=== PATIENT | female | born 1960 ===

== ENCOUNTER 2017-01-11 10:38 | Inpatient (IN) | payer MEDICAID, SELFPAY ==
[2017-01-11] MEDS ORDERED: Sodium Chloride 0.9% 1,000 ML IV STA (11:30)
--- NOTE | 2017-01-11 11:45 | ED PDOC ---
HPI: Abdomen Time Seen by Provider: 01/11/17 10:53 Chief Complaint (Nursing): Abdominal Pain Chief Complaint (Provider): Suprapubic pain x 1 day, hot urination x 3 days History Per: Patient, Family (Daughter ) History/Exam Limitations: no limitations Onset/Duration Of Symptoms: Days Outside of [place] travel?: No Current Symptoms Are (Timing): Still Present Severity: Moderate Pain Scale Rating Of: 7 Location Of Pain/Discomfort: Suprapubic Quality Of Discomfort: Cramping Associated Symptoms: Nausea. denies: Fever, Chills, Vomiting Additional Complaint(s): Pt states she has been having hot urination and urinary frequency for 3 days. Pt states last night she has some nausea with suprapubic pain. Pt states she did not take anything for the pain and tolerated toast and coffee today. Pt states she has history of diverticulitis but the pain was on the left side. No fever/chills Past Medical History Reviewed: Historical Data, Nursing Documentation, Vital Signs Vital Signs: Last Vital Signs Temp 98.1 F 01/11/17 19:53 Pulse 79 01/11/17 20:13 Resp 16 01/11/17 19:53 BP 163/74 H 01/11/17 20:13 Pulse Ox 100 01/11/17 19:53 - Medical History PMH: Diabetes, Diverticulitis, HTN, Hyperlipidemia, Hypothyroidism Denies: Chronic Kidney Disease - Surgical History Surgical History: (x 3) - Family History Family History: States: No Known Family Hx - Living Arrangements Living Arrangements: With Family - Social History Current smoker - smoking cessation education provided: No - Home Medications Home Medications: Ambulatory Orders Medication Instructions Recorded Atorvastatin [Lipitor] 40 mg PO HS 11/16/16 Levothyroxine [Synthroid] 1 tab PO DAILY 11/16/16 Lisinopril [Zestril] 20 mg PO DAILY 11/16/16 Metoprolol Tartrate [Lopressor] 100 mg PO BID 11/16/16 metFORMIN [glucOPHAGE] 500 mg PO BID 11/16/16 - Allergies Allergies/Adverse Reactions: Allergies Allergy/AdvReac Type Severity Reaction Status Date / Time aspirin Allergy RASH Verified 01/11/17 10:56 Review of Systems ROS Statement: Except As Marked, All Systems Reviewed And Found Negative Cardiovascular: Negative for: Chest Pain Respiratory: Negative for: Cough, Shortness of Breath Gastrointestinal: Positive for: Nausea, Abdominal Pain Genitourinary Female: Positive for: Dysuria, Frequency Physical Exam - Reviewed Nursing Documentation Reviewed: Yes Vital Signs Reviewed: Yes - Physical Exam Appears: Positive for: Well, Non-toxic, No Acute Distress Head Exam: Positive for: ATRAUMATIC, NORMAL INSPECTION, NORMOCEPHALIC Skin: Positive for: Normal Color, Warm, DRY Eye Exam: Positive for: Normal appearance ENT: Positive for: Normal ENT Inspection Neck: Positive for: Normal, Painless ROM Cardiovascular/Chest: Positive for: Regular Rate, Rhythm Respiratory: Positive for: Normal Breath Sounds. Negative for: Accessory Muscle Use, Respiratory Distress Gastrointestinal/Abdominal: Positive for: Bowel Sounds, Soft, Tenderness ( Suprapubic). Negative for: Normal Exam, Distended, Guarding, Rebound Back: Positive for: Normal Inspection Extremity: Positive for: Normal ROM Neurologic/Psych: Positive for: Alert, Oriented - Laboratory Results Result Diagrams: 01/11/17 11:40 01/11/17 11:40 - ECG O2 Sat by Pulse Oximetry: 98 Pulse Ox Interpretation: Normal Medical Decision Making Medical Decision Making: Discussed with Family residents for admisison. Discussed with Dr. Jovon Hillman. Disposition - Clinical Impression Clinical Impression: Diverticulitis large intestine w/o perforation or abscess w/o bleeding - Patient ED Disposition Is Patient to be Admitted: Yes - Disposition Disposition Time: 19:20 Condition: STABLE - Pt Status Changed To: Hospital Disposition Of: Inpatient - Admit Certification Admit to Inpatient:: After my assessment, the patient will require hospitalization for at least two midnights. This is because of the severity of symptoms shown, intensity of services needed, and/or the medical risk in this patient being treated as an outpatient. - POA Present On Arrival: None
[2017-01-11 11:53] LABS: BASO # 0.1 K/uL (0.0-0.2); BASO % 1.1 % (0.0-2.0); EOS # 0.2 K/uL (0.0-0.7); EOS % 1.8 % (0.0-4.0); HEMATOCRIT 39.9 % (34.0-47.0); LYMPH # 2.3 K/uL (1.0-4.3); LYMPH % 23.3 % (20.0-40.0); MEAN CELL VOLUME 80.3 fl (81.0-99.0); MEAN CORPUSCULAR HEMOGLOBIN 27.3 pg (27.0-31.0); MEAN PLATELET VOLUME 9.5 fl (7.2-11.7); MONO # 0.8 K/uL (0.0-0.8); MONO % 8.3 % (0.0-10.0); NEUT # 6.3 K/uL (1.8-7.0); NEUT % 65.5 % (50.0-75.0); RED CELL DISTRIBUTION WIDTH 14.7 % (11.5-14.5); WHITE BLOOD COUNT 9.7 K/uL (4.8-10.8)
[2017-01-11 11:55] LABS: URINE BILIRUBIN NEGATIVE (NEGATIVE); URINE BLOOD SMALL (NEGATIVE); URINE COLOR STRAW (YELLOW); URINE GLUCOSE (UA) NEG (Normal); URINE KETONE NEGATIVE (NEGATIVE); URINE LEUKOCYTE ESTERASE NEG Leu/uL (Negative); URINE PROTEIN NEGATIVE (NEGATIVE); URINE UROBILINOGEN 0.2-1.0 mg/dL (0.2-1.0); WBC URINE < 1 /hpf (0-5)
[2017-01-11 12:02] LABS: ALB/GLOB RATIO 1.1 (1.0-2.1); ALKALINE PHOSPHATASE 104 U/L (38-126); ALT/SGPT 36 U/L (9-52); AST/SGOT 22 U/L (14-36); BILIRUBIN,TOTAL 1.2 mg/dl (0.2-1.3); BLOOD UREA NITROGEN 10 mg/dl (7-17); CALCIUM 9.5 mg/dL (8.4-10.2); CARBON DIOXIDE 24 mmol/L (22-30); CHLORIDE 104 mmol/L (98-107); GFR AFRICAN-AMERICAN > 60; GLUCOSE,RANDOM 169 mg/dL (65-105); POTASSIUM 3.8 MMOL/L (3.6-5.0); SODIUM 143 mmol/l (132-148); TOTAL PROTEIN 7.9 G/DL (6.3-8.2)
[2017-01-11] MEDS ORDERED: Iohexol 300 100 ML IJ ONE (13:56)
[2017-01-11] MEDS ORDERED: Sodium Chloride 0.9% 50 ML IV ONE (13:56)
--- NOTE | 2017-01-11 15:04 | CT ---
PROCEDURE: CT Abdomen and Pelvis with contrast HISTORY: abdominal pain, nausea, hx diverticulitis COMPARISON: None. TECHNIQUE: Helical CT scan of the abdomen and pelvis was performed after intravenous administration of contrast. Oral contrast was not administered. Coronal and sagittal reformatted images were obtained. Contrast dose: 95 mL Omnipaque 300 Radiation dose: Total exam DLP = 1045.87 mGy-cm. This CT exam was performed using one or more of the following dose reduction techniques: Automated exposure control, adjustment of the mA and/or kV according to patient size, and/or use of iterative reconstruction technique. FINDINGS: LOWER THORAX: There is dependent atelectasis in both lower lobes. LIVER: The liver is normal in size and there is homogeneous enhancement without focal lesion. No gross lesion or ductal dilatation. GALLBLADDER AND BILE DUCTS: There are no calcified gallstones. PANCREAS: The pancreas is normal in size without focal mass. No gross lesion or ductal dilatation. SPLEEN: The spleen is normal in size and there is homogeneous enhancement. ADRENALS: No discrete nodule. KIDNEYS AND URETERS: Both kidneys are normal in size and there is homogeneous enhancement without hydronephrosis or focal mass. VASCULATURE: No evidence of aortic aneurysm. BOWEL: The small bowel loops are normal in caliber. Again seen is sigmoid diverticulosis. There is moderate circumferential mural thickening in the sigmoid colon and pericolonic inflammatory changes. There is a 3.3 x 3.3 x 4.5 cm collection in the left hemipelvis lateral to the sigmoid colon and in the expected location of the left adnexa tracking anterior to the left abdominal wall with thickening and edema in the left lower abdominal wall. APPENDIX: Normal appendix. PERITONEUM: No free fluid. No free air. LYMPH NODES: There is reactive enlargement of retroperitoneal lymph nodes. BLADDER: The urinary bladder is over distended and normal in appearance. REPRODUCTIVE: The uterus is not visualized and may be surgically absent. BONES: No acute fracture. There is multilevel degenerative disc disease in the lower thoracic spine. OTHER FINDINGS: None. IMPRESSION: Findings are consistent with acute sigmoid diverticulitis. Also suspected is reactive inflammation/ abscess in the left adnexa in the expected location of the left ovary measuring 3.3 x 3.3 x 4.5 cm tracking anteriorly to the left abdominal wall. Additional comments as described above.
[2017-01-11] MEDS ORDERED: metroNIDAZOLE 500mg/100ml NS 100 ML IVPB ONE ×2 (15:36→15:41)
[2017-01-11] MEDS ORDERED: Ciprofloxacin IV 400 MG in Sodium Chloride 0.9% 250 ML IV STA (15:36)
[2017-01-11] MEDS ORDERED: Ciprofloxacin 400mg/200ml D5W 200 ML IVPB ONE (15:41)
[2017-01-11] MEDS ORDERED: Ciprofloxacin 400mg/200ml D5W 200 ML IVPB STA (15:49)
--- NOTE | 2017-01-11 16:47 | US ---
HISTORY: Left fluid collection. COMPARISON: None available. TECHNIQUE: Transvaginal pelvic ultrasound was performed. FINDINGS: UTERUS: Status post hysterectomy. RIGHT OVARY: Not visualized. LEFT OVARY: Not visualized. FREE FLUID: No significant free fluid noted. OTHER FINDINGS: Peristalsing bowel loops are visualized. IMPRESSION: Status post hysterectomy, no pelvic mass. Both ovaries are not visualized. No adnexal mass.
[2017-01-11] MEDS ORDERED: Dextrose 5%/0.45% NS 1,000 ML IV SCH (19:00)
[2017-01-11] MEDS ORDERED: metroNIDAZOLE 500mg/100ml NS 100 ML IVPB SCH (19:15)
--- NOTE | 2017-01-11 19:31 | CP.PCM.HP ---
History of Present Illness - History of Present Illness History of Present Illness: CC: dysuria and lower abdominal pain 56 yo F with PMH of HTN, DM2, Hyperlipidemia, Hypothyroidism s/p Thyroidectomy (5 years ago as per pt) presents with worsening intermittent lower abdominal pain localizing to the LLQ, dysuria and chills x 3 days. Pain is 8/10 intensity , diffuse, intermittent, no radiation to flank or upper abdomen, associated w/ nausea but no vomiting. Able to tolerate toast and coffee this AM, able to pass flatus w/o difficulty, last BM this AM, soft, brown in color, no hematochezia reported. Denies CASTRO, fevers, chest pain, SOB, hematemesis, hematochezia, parasthesias, focal weakness. Denies FH of colon CA, states never having a colonoscopy done. ER course: VS stable, afebrile, BP mildly elevated, cbc no leukocytosis, cmp, UA , CT abdo w/contrast: acute sigmoid diverticulitis, TVUS: no adenexal abscess, IV cipro x 1, IV flagyll x 1, morphine PMD: Jj Messina MD Allergies: ASA Meds: Metoprolol, Levothyroxine, Metformin, lisinopril, lipitor PMHx: HTN, DM, HLD, Hypothyroidism, Diabetes SHx: 3 C-sections, Thyroidectomy, Umbilical Hernia, Hysterectomy SocialHx: denies smoking, alcohol, drugs. Present on Admission - Present on Admission Any Indicators Present on Admission: No Review of Systems - Review of Systems Review of Systems: see hpi Past Patient History - Past Medical History & Family History Past Medical History?: Yes - Past Social History Smoking Status: Never Smoked - CARDIAC Hx Hypertension: Yes - PULMONARY Hx Respiratory Disorders: No - NEUROLOGICAL Hx Neurological Disorder: No - HEENT Hx HEENT Problems: No - RENAL Hx Chronic Kidney Disease: No - ENDOCRINE/METABOLIC Hx Hypothyroidism: Yes - INTEGUMENTARY Hx Dermatological Problems: No - MUSCULOSKELETAL/RHEUMATOLOGICAL Hx Musculoskeletal Disorders: No - GASTROINTESTINAL Hx Diverticulitis: Yes - GENITOURINARY/GYNECOLOGICAL Hx Genitourinary Disorders: No - PSYCHIATRIC Hx Psychophysiologic Disorder: No Hx Substance Use: No - SURGICAL HISTORY Hx Surgeries: No - ANESTHESIA Hx Anesthesia: No Meds Allergies/Adverse Reactions: Allergies Allergy/AdvReac Type Severity Reaction Status Date / Time aspirin Allergy RASH Verified 01/11/17 10:56 Physical Exam - Constitutional Appears: Non-toxic, No Acute Distress - Head Exam Head Exam: ATRAUMATIC - Eye Exam Eye Exam: EOMI Pupil Exam: PERRL - ENT Exam ENT Exam: Mucous Membranes Moist - Neck Exam Neck exam: Positive for: Full Rom. Negative for: Lymphadenopathy, Tenderness - Respiratory Exam Respiratory Exam: Clear to Auscultation Bilateral. absent: Accessory Muscle Use , Rhonchi, Wheezes, Respiratory Distress - Cardiovascular Exam Cardiovascular Exam: +S1, +S2 - GI/Abdominal Exam GI & Abdominal Exam: Distended, Normal Bowel Sounds, Soft, Tenderness Additional comments: mildly tenender RLQ, moderate tenderness to LLQ, some voluntary guarding, + BS , soft but distended obese abdomen Results - Vital Signs Recent Vital Signs: Last Vital Signs Temp 98.3 F 01/11/17 16:17 Pulse 82 01/11/17 16:17 Resp 19 01/11/17 16:17 BP 150/73 01/11/17 16:17 Pulse Ox 99 01/11/17 16:17 - Labs Result Diagrams: 01/11/17 11:40 01/11/17 11:40 Labs: Laboratory Results - last 24 hr 01/11/17 11:40 WBC 9.7 RBC 4.97 Hgb 13.6 Hct 39.9 MCV 80.3 L MCH 27.3 MCHC 34.0 RDW 14.7 H Plt Count 327 MPV 9.5 Neut % (Auto) 65.5 Lymph % (Auto) 23.3 [place] % (Auto) 8.3 Eos % (Auto) 1.8 Baso % (Auto) 1.1 Neut # 6.3 Lymph # 2.3 [place] # 0.8 Eos # 0.2 Baso # 0.1 Sodium 143 Potassium 3.8 Chloride 104 Carbon Dioxide 24 Anion Gap 19 BUN 10 Creatinine 0.7 Est GFR ( Amer) > 60 Est GFR (Non-Af Amer) > 60 Random Glucose 169 H Calcium 9.5 Total Bilirubin 1.2 AST 22 ALT 36 Alkaline Phosphatase 104 Total Protein 7.9 Albumin 4.1 Globulin 3.8 Albumin/Globulin Ratio 1.1 Urine Color Straw Urine Clarity Clear Urine pH 7.0 Ur Specific [place] < 1.005 Urine Protein Negative Urine Glucose (UA) Neg Urine Ketones Negative Urine Blood Small Urine Nitrate Negative Urine Bilirubin Negative Urine Urobilinogen 0.2-1.0 Ur Leukocyte Esterase Neg Urine Microscopic WBC < 1 Assessment & Plan - Assessment and Plan (Free Text) Plan: 56 yo F with PMH of HTN, DM2, Hyperlipidemia, Hypothyroidism s/p Thyroidectomy (5 years ago as per pt) presents with worsening intermittent lower abdominal pain localizing to the LLQ, dysuria and chills x 3 days Acute Sigmoid Diverticulitis ER course: VS stable, afebrile, BP mildly elevated, cbc no leukocytosis, cmp, UA , IV cipro x 1, IV flagyll x 1, morphine CT abdo w/contrast: acute sigmoid diverticulitis TVUS: no adenexal abscess NPO for now mtx fluids D5W 0.45% NS @130ml/hr IV cipro 400 Q12 IV flagyll 500 Q8 Morphine for pain control Zofran 4 mg IV Q8 PRN Surgery consulted for evaluation of abscess formation HTN controlled c/w metoprolol and lisinopril DM2 controlled metformin held while NPO MDSS accuchecks ACHS Hypothyroidism controlled c/w synthroid HLD controlled c/w lipitor PPx DVT - SCDs and ambulation for now GI - Protonix while NPO
[2017-01-11] MEDS ORDERED: Ciprofloxacin 400mg/200ml D5W 200 ML IVPB SCH (21:00)
[2017-01-11] MEDS: Dextrose 5%/0.45% NS 1,000 ML IV SCH (21:09)
[2017-01-11] MEDS: Insulin Lispro (humaLOG) 100 Units/ml Inj SC SCH (23:09)
[2017-01-12] MEDS: metroNIDAZOLE 500mg/100ml NS 100 ML IVPB SCH ×3 (02:00→17:42)
[2017-01-12] MEDS: Ciprofloxacin 400mg/200ml D5W 200 ML IVPB SCH ×2 (03:36→16:00)
[2017-01-12] MEDS: Dextrose 5%/0.45% NS 1,000 ML IV SCH (04:00)
[2017-01-12 07:30] LABS: BASO % 0.3 % (0.0-2.0); EOS # 0.2 K/uL (0.0-0.7); EOS % 2.5 % (0.0-4.0); HEMATOCRIT 38.1 % (34.0-47.0); LYMPH # 2.1 K/uL (1.0-4.3); LYMPH % 26.1 % (20.0-40.0); MEAN CELL VOLUME 81.5 fl (81.0-99.0); MEAN CORPUSCULAR HEMOGLOBIN 27.2 pg (27.0-31.0); MEAN CORPUSCULAR HGB CONC 33.4 g/dL (33.0-37.0); MEAN PLATELET VOLUME 9.2 fl (7.2-11.7); MONO # 0.7 K/uL (0.0-0.8); NEUT % 62.1 % (50.0-75.0); NRBC % 0.1 % (0.0-0.0); RED CELL DISTRIBUTION WIDTH 14.7 % (11.5-14.5)
[2017-01-12] MEDS: Levothyroxine 125 MCG TAB PO SCH ×2 (07:40→09:00)
[2017-01-12 07:42] LABS: ALB/GLOB RATIO 1.1 (1.0-2.1); ALKALINE PHOSPHATASE 96 U/L (38-126); ALT/SGPT 34 U/L (9-52); AST/SGOT 19 U/L (14-36); BILIRUBIN,TOTAL 1.5 mg/dl (0.2-1.3); BLOOD UREA NITROGEN 6 mg/dl (7-17); CARBON DIOXIDE 24 mmol/L (22-30); CHLORIDE 102 mmol/L (98-107); GFR AFRICAN-AMERICAN > 60; GLUCOSE,RANDOM 152 mg/dL (65-105); POTASSIUM 3.8 MMOL/L (3.6-5.0); SODIUM 141 mmol/l (132-148); TOTAL PROTEIN 7.1 G/DL (6.3-8.2)
[2017-01-12] MEDS: Insulin Lispro (humaLOG) 100 Units/ml Inj SC SCH ×4 (07:45→23:00)
--- NOTE | 2017-01-12 08:07 | CP.PCM.CON ---
<Ji Ponce - Last Filed: 01/12/17 08:38> History of Present Illness - History of Present Illness History of Present Illness: General Surgery Consult Re: diverticulitis with abscess HPI: 56F presented to ED with low abdominal pain x 4 days. Pain increased yesterday morning and she decided to come in. Pain is intermittent, non radiating, and more in the LLQ. + dysuria, nausea, chills. Last BM yesterday was normal. +flatus. Denies fever, vomiting, SOB, Chest pain. Pt has never had a colonoscopy. PMH: HTN, DM, HLD, Hypothyroid PSH: Thyroidectomy, 3 c-sections, umbilical hernia, hysterectomy SH: No tobacco, EtOH, or drug use All: ASA Meds: See MAR Review of Systems - Review of Systems All systems: reviewed and no additional remarkable complaints except (as per HPI ) Past Patient History - Past Medical History & Family History Past Medical History?: Yes - Past Social History Smoking Status: Never Smoked - CARDIAC Hx Cardiac Disorders: Yes Hx Hypercholesterolemia: Yes Hx Hypertension: Yes - PULMONARY Hx Respiratory Disorders: No - NEUROLOGICAL Hx Neurological Disorder: No - HEENT Hx HEENT Problems: No - RENAL Hx Chronic Kidney Disease: No - ENDOCRINE/METABOLIC Hx Endocrine Disorders: Yes Hx Hypothyroidism: Yes - HEMATOLOGICAL/ONCOLOGICAL Hx Blood Disorders: No Hx AIDS: No Hx Human Immunodeficiency Virus (HIV): No - INTEGUMENTARY Hx Dermatological Problems: No - MUSCULOSKELETAL/RHEUMATOLOGICAL Hx Musculoskeletal Disorders: No Hx Falls: No - GASTROINTESTINAL Hx Gastrointestinal Disorders: Yes Hx Diverticulitis: Yes - GENITOURINARY/GYNECOLOGICAL Hx Genitourinary Disorders: No - PSYCHIATRIC Hx Psychophysiologic Disorder: No Hx Substance Use: No - SURGICAL HISTORY Hx Surgeries: Yes Hx Hysterectomy: Yes - ANESTHESIA Hx Anesthesia: No Hx Anesthesia Reactions: No Hx Malignant Hyperthermia: No Has any member of the family had a problem w/ anesthesia?: No Meds Allergies/Adverse Reactions: Allergies Allergy/AdvReac Type Severity Reaction Status Date / Time aspirin Allergy RASH Verified 01/11/17 10:56 - Medications Medications: Current Medications Acetaminophen (Tylenol 325mg Tab) 650 mg PO Q6 PRN PRN Reason: Fever >100.4 F Atorvastatin Calcium (Lipitor) 40 mg PO HS [facility] Last Admin: 01/11/17 23:09 Dose: 40 mg Dextrose/Sodium Chloride (Dextrose 5%/0.45% Ns 1000 Ml) 1,000 mls @ 130 mls/hr IV .Q7H42M [facility] Stop: 01/12/17 20:09 Last Admin: 01/12/17 04:00 Dose: Not Given Ciprofloxacin (Cipro 400mg/200ml Dsw) 200 mls @ 200 mls/hr IVPB Q12@0400,1600 [facility] Last Admin: 01/12/17 03:36 Dose: 200 mls/hr Metronidazole (Flagyl 500mg/100ml Ns) 100 mls @ 100 mls/hr IVPB Q8@0200,1000, 1800 [facility] Last Admin: 01/12/17 02:00 Dose: 100 mls/hr Insulin Human Lispro (Humalog) 0 units SC ACCU-CHECK [facility] PRN Reason: Protocol Last Admin: 01/12/17 07:45 Dose: Not Given Levothyroxine Sodium (Synthroid) 125 mcg PO DAILY@0630 [facility] Last Admin: 01/12/17 07:40 Dose: 125 mcg Lisinopril (Zestril) 20 mg PO DAILY [facility] Metformin HCl (Glucophage) 500 mg PO BID [facility] Metoprolol Tartrate (Lopressor) 100 mg PO BID [facility] Last Admin: 01/11/17 20:06 Dose: 100 mg Morphine Sulfate (Morphine) 4 mg IVP Q6 PRN PRN Reason: Pain, severe (8-10) Last Admin: 01/11/17 23:16 Dose: 4 mg Morphine Sulfate (Morphine) 2 mg IVP Q4 PRN PRN Reason: Pain, moderate (4-7) Ondansetron HCl (Zofran Inj) 4 mg IVP Q6 PRN PRN Reason: Nausea/Vomiting Pantoprazole Sodium (Protonix Inj) 40 mg IVP DAILY [facility] Physical Exam - Constitutional Appears: Non-toxic, No Acute Distress - Head Exam Head Exam: ATRAUMATIC, NORMOCEPHALIC - Eye Exam Eye Exam: EOMI. absent: Scleral icterus - ENT Exam ENT Exam: Mucous Membranes Dry Additional comments: trachea midline - Respiratory Exam Respiratory Exam: NORMAL BREATHING PATTERN. absent: Respiratory Distress - Cardiovascular Exam Cardiovascular Exam: RRR, +S1, +S2 - GI/Abdominal Exam GI & Abdominal Exam: Guarding, Soft, Tenderness (in suprapubic and LLQ). absent : Distended, Firm, Rigid - Rectal Exam Rectal Exam: Deferred - Extremities Exam Extremities exam: Positive for: normal capillary refill. Negative for: calf tenderness - Back Exam Back exam: absent: CVA tenderness (L), CVA tenderness (R) - Neurological Exam Neurological exam: Alert, Oriented x3 - Psychiatric Exam Psychiatric exam: Normal Affect, Normal Mood - Skin Skin Exam: Dry, Warm Results - Vital Signs Recent Vital Signs: Last Vital Signs Temp 98.0 F 01/12/17 07:45 Pulse 78 01/12/17 07:45 Resp 20 01/12/17 07:45 BP 146/82 01/12/17 07:45 Pulse Ox 97 01/12/17 07:45 - Labs Result Diagrams: 01/12/17 05:35 01/12/17 05:35 Labs: Laboratory Results - last 24 hr 01/11/17 01/11/17 01/12/17 19:28 21:34 05:35 WBC 8.0 RBC 4.67 Hgb 12.7 Hct 38.1 MCV 81.5 MCH 27.2 MCHC 33.4 RDW 14.7 H Plt Count 297 MPV 9.2 Neut % (Auto) 62.1 Lymph % (Auto) 26.1 [place] % (Auto) 9.0 Eos % (Auto) 2.5 Baso % (Auto) 0.3 Neut # 5.0 Lymph # 2.1 [place] # 0.7 Eos # 0.2 Baso # 0.0 Sodium 141 Potassium 3.8 Chloride 102 Carbon Dioxide 24 Anion Gap 18 BUN 6 L Creatinine 0.7 Est GFR ( Amer) > 60 Est GFR (Non-Af Amer) > 60 POC Glucose (mg/dL) 138 H Random Glucose 152 H Lactic Acid 1.5 Calcium 9.0 Total Bilirubin 1.5 H AST 19 ALT 34 Alkaline Phosphatase 96 Total Protein 7.1 Albumin 3.7 Globulin 3.3 Albumin/Globulin Ratio 1.1 01/12/17 05:44 WBC RBC Hgb Hct MCV MCH MCHC RDW Plt Count MPV Neut % (Auto) Lymph % (Auto) [place] % (Auto) Eos % (Auto) Baso % (Auto) Neut # Lymph # [place] # Eos # Baso # Sodium Potassium Chloride Carbon Dioxide Anion Gap BUN Creatinine Est GFR ( Amer) Est GFR (Non-Af Amer) POC Glucose (mg/dL) 145 H Random Glucose Lactic Acid Calcium Total Bilirubin AST ALT Alkaline Phosphatase Total Protein Albumin Globulin Albumin/Globulin Ratio - Imaging and Cardiology CT scan - abdomen Status: Image reviewed by me, Report reviewed by me Assessment & Plan - Assessment and Plan (Free Text) Assessment: 56F with acute diverticulitis with abscess. Plan: IVF On cipro and flagyl Analgesia Zofran Continue medical management. Consider IR drainage Will D/W Dr. Vinay Ponce PGY3 <Chris Mclean - Last Filed: 01/12/17 10:21> History of Present Illness - History of Present Illness History of Present Illness: Patient was seen and examined at the bedside. Agree with resident's note above Meds - Medications Medications: Current Medications Acetaminophen (Tylenol 325mg Tab) 650 mg PO Q6 PRN PRN Reason: Fever >100.4 F Atorvastatin Calcium (Lipitor) 40 mg PO HS [facility] Last Admin: 01/11/17 23:09 Dose: 40 mg Dextrose/Sodium Chloride (Dextrose 5%/0.45% Ns 1000 Ml) 1,000 mls @ 130 mls/hr IV .Q7H42M [facility] Stop: 01/12/17 20:09 Last Admin: 01/12/17 04:00 Dose: Not Given Ciprofloxacin (Cipro 400mg/200ml Dsw) 200 mls @ 200 mls/hr IVPB Q12@0400,1600 [facility] Last Admin: 01/12/17 03:36 Dose: 200 mls/hr Metronidazole (Flagyl 500mg/100ml Ns) 100 mls @ 100 mls/hr IVPB Q8@0200,1000, 1800 [facility] Last Admin: 01/12/17 02:00 Dose: 100 mls/hr Insulin Human Lispro (Humalog) 0 units SC ACCU-CHECK [facility] PRN Reason: Protocol Last Admin: 01/12/17 07:45 Dose: Not Given Levothyroxine Sodium (Synthroid) 125 mcg PO DAILY@0630 [facility] Last Admin: 01/12/17 07:40 Dose: 125 mcg Lisinopril (Zestril) 20 mg PO DAILY [facility] Metformin HCl (Glucophage) 500 mg PO BID [facility] Metoprolol Tartrate (Lopressor) 100 mg PO BID [facility] Last Admin: 01/11/17 20:06 Dose: 100 mg Morphine Sulfate (Morphine) 4 mg IVP Q6 PRN PRN Reason: Pain, severe (8-10) Last Admin: 01/11/17 23:16 Dose: 4 mg Morphine Sulfate (Morphine) 2 mg IVP Q4 PRN PRN Reason: Pain, moderate (4-7) Ondansetron HCl (Zofran Inj) 4 mg IVP Q6 PRN PRN Reason: Nausea/Vomiting Pantoprazole Sodium (Protonix Inj) 40 mg IVP DAILY [facility] Results - Vital Signs Recent Vital Signs: Last Vital Signs Temp 98.0 F 01/12/17 07:45 Pulse 78 01/12/17 07:45 Resp 20 01/12/17 07:45 BP 146/82 01/12/17 07:45 Pulse Ox 97 01/12/17 07:45 - Labs Result Diagrams: 01/12/17 05:35 01/12/17 05:35 Labs: Laboratory Results - last 24 hr 01/11/17 01/11/17 01/12/17 19:28 21:34 05:35 WBC 8.0 RBC 4.67 Hgb 12.7 Hct 38.1 MCV 81.5 MCH 27.2 MCHC 33.4 RDW 14.7 H Plt Count 297 MPV 9.2 Neut % (Auto) 62.1 Lymph % (Auto) 26.1 [place] % (Auto) 9.0 Eos % (Auto) 2.5 Baso % (Auto) 0.3 Neut # 5.0 Lymph # 2.1 [place] # 0.7 Eos # 0.2 Baso # 0.0 Sodium 141 Potassium 3.8 Chloride 102 Carbon Dioxide 24 Anion Gap 18 BUN 6 L Creatinine 0.7 Est GFR ( Amer) > 60 Est GFR (Non-Af Amer) > 60 POC Glucose (mg/dL) 138 H Random Glucose 152 H Lactic Acid 1.5 Calcium 9.0 Total Bilirubin 1.5 H AST 19 ALT 34 Alkaline Phosphatase 96 Total Protein 7.1 Albumin 3.7 Globulin 3.3 Albumin/Globulin Ratio 1.1 01/12/17 05:44 WBC RBC Hgb Hct MCV MCH MCHC RDW Plt Count MPV Neut % (Auto) Lymph % (Auto) [place] % (Auto) Eos % (Auto) Baso % (Auto) Neut # Lymph # [place] # Eos # Baso # Sodium Potassium Chloride Carbon Dioxide Anion Gap BUN Creatinine Est GFR ( Amer) Est GFR (Non-Af Amer) POC Glucose (mg/dL) 145 H Random Glucose Lactic Acid Calcium Total Bilirubin AST ALT Alkaline Phosphatase Total Protein Albumin Globulin Albumin/Globulin Ratio Assessment & Plan - Assessment and Plan (Free Text) Assessment: 56 y.o. female with diverticulitis Plan: - Start clear liquid diet - Pain control - IV fluids - Continue antibiotics - Repeat labs in am - Will follow
[2017-01-12] MEDS ORDERED: Pantoprazole 40 mg EC Tab PO SCH (09:00)
--- NOTE | 2017-01-12 10:14 | CP.PCM.PN ---
Subjective - Date & Time of Evaluation Date of Evaluation: 01/12/17 Time of Evaluation: 07:20 - Subjective Subjective: The patient is a 56 y/o woman w/ PMH of HTN, DM2, Hyperlipidemia, Hypothyroidism s/p Thyroidectomy (5 years ago as per pt) presented with worsening intermittent lower abdominal pain localizing to the LLQ, dysuria and chills 3 days prior to admission. The patient was seen this morning. There are no acute events overnight. The patient is not in acute distress. The patient continues to complain of abdominal pain, more so on the LLQ. The patient continues to complain mild dysuria (UA neg leuks and nitrates, urine culture no growth). The patient denies headaches, dizziness, chest pain, dyspnea, nausea, vomiting, and fevers. Objective - Vital Signs/Intake and Output Vital Signs (last 24 hours): Temp Pulse Resp BP Pulse Ox 98.0 F 78 20 146/82 97 01/12/17 07:45 01/12/17 07:45 01/12/17 07:45 01/12/17 07:45 01/12/17 07:45 - Medications Medications: Current Medications Acetaminophen (Tylenol 325mg Tab) 650 mg PO Q6 PRN PRN Reason: Fever >100.4 F Atorvastatin Calcium (Lipitor) 40 mg PO HS [facility] Last Admin: 01/11/17 23:09 Dose: 40 mg Dextrose/Sodium Chloride (Dextrose 5%/0.45% Ns 1000 Ml) 1,000 mls @ 130 mls/hr IV .[id number] [facility] Stop: 01/12/17 20:09 Last Admin: 01/12/17 04:00 Dose: Not Given Ciprofloxacin (Cipro 400mg/200ml Dsw) 200 mls @ 200 mls/hr IVPB Q12@0400,1600 [facility] Last Admin: 01/12/17 03:36 Dose: 200 mls/hr Metronidazole (Flagyl 500mg/100ml Ns) 100 mls @ 100 mls/hr IVPB Q8@0200,1000, 1800 [facility] Last Admin: 01/12/17 02:00 Dose: 100 mls/hr Insulin Human Lispro (Humalog) 0 units SC ACCU-CHECK [facility] PRN Reason: Protocol Last Admin: 01/12/17 07:45 Dose: Not Given Levothyroxine Sodium (Synthroid) 125 mcg PO DAILY@0630 [facility] Last Admin: 01/12/17 07:40 Dose: 125 mcg Lisinopril (Zestril) 20 mg PO DAILY [facility] Metformin HCl (Glucophage) 500 mg PO BID [facility] Metoprolol Tartrate (Lopressor) 100 mg PO BID [facility] Last Admin: 01/11/17 20:06 Dose: 100 mg Morphine Sulfate (Morphine) 4 mg IVP Q6 PRN PRN Reason: Pain, severe (8-10) Last Admin: 01/11/17 23:16 Dose: 4 mg Morphine Sulfate (Morphine) 2 mg IVP Q4 PRN PRN Reason: Pain, moderate (4-7) Ondansetron HCl (Zofran Inj) 4 mg IVP Q6 PRN PRN Reason: Nausea/Vomiting Pantoprazole Sodium (Protonix Inj) 40 mg IVP DAILY [facility] - Labs Labs: 01/12/17 05:35 01/12/17 05:35 - Constitutional Appears: No Acute Distress - Head Exam Head Exam: ATRAUMATIC, NORMOCEPHALIC - ENT Exam ENT Exam: Mucous Membranes Moist - Respiratory Exam Respiratory Exam: Clear to Ausculation Bilateral. absent: Accessory Muscle Use , Chest Wall Tenderness, Decreased Breath Sounds, Prolonged Expiratory Phase, Rales, Rhonchi, Wheezes, Respiratory Distress, Stridor - Cardiovascular Exam Cardiovascular Exam: REGULAR RHYTHM. absent: Tachycardia - GI/Abdominal Exam GI & Abdominal Exam: Distended, Soft, Tenderness, Normal Bowel Sounds. absent: Firm, Guarding, Rigid Additional comments: distended obese abdomen, mild LLQ tenderness, no guarding, not rigid - Extremities Exam Extremities Exam: Normal Inspection. absent: Calf Tenderness, Tenderness - Neurological Exam Neurological Exam: Alert, Awake, Oriented x3 - Skin Skin Exam: Dry, Intact, Normal Color, Warm Assessment and Plan - Assessment and Plan (Free Text) Assessment: The patient is a 56 y/o woman w/ PMH of HTN, DM2, Hyperlipidemia, Hypothyroidism s/p Thyroidectomy (5 years ago as per patient) presented with worsening intermittent lower abdominal pain localizing to the LLQ, dysuria and chills 3 days prior to admission. Plan: 1. Acute Sigmoid Diverticulitis - ER course: VS stable, afebrile, BP mildly elevated, CBC no leukocytosis, CMP, UA, IV cipro x 1, IV flagyll x 1, morphine - CT abdo w/contrast: acute sigmoid diverticulitis, suspected reactive inflammation/abscess in left adnexa in left ovary measuring 3.3 x 3.3 x 4.5 cm tracking anteriorly to left abdominal wall. - TVUS: no adenexal abscess, no pelvic/adnexal mass, s/p hysterectomy - maintenance fluids D5W 0.45% NS @130ml/hr - IV ciprofloxacin 400 mg Q12h - IV metronidazole 500 mg Q8h - Morphine 2 mg IV Q4h and 4 mg IV Q6h for pain control - Zofran 4 mg IV Q8 PRN - Tylenol 650 mg PO Q6h prn for fever - Surgery consulted; recommendations appreciated - starting clear liquid diet - IV fluids - continue with antibiotics - pain management - repeat labs in AM 2. Dysuria - UA: negative leukocyte esterase and nitrates - Urine culture: no growth - on IV cipro 400 mg Q12h 3. HTN - controlled - continue with metoprolol 100 mg PO BID and lisinopril 20 mg PO daily 4. DM Type 2 - controlled, non-insulin dependent - metformin 500 mg PO BID held - Medium Dose SS - accuchecks ACHS - hypoglycemia protocol 5. Hypothyroidism - controlled - TSH 12/24/2016: 0.83 - continue with levothyroxine 125 mcg PO daily 6. HLD - controlled - continue with atorvastatin 40 mg PO HS 7. Prophylaxis DVT - SCDs and ambulation for now; low risk GI - Protonix 40 mg IV daily while NPO
[2017-01-12] MEDS ORDERED: Fluconazole 150 MG TAB PO ONE (12:30)
[2017-01-13] MEDS: metroNIDAZOLE 500mg/100ml NS 100 ML IVPB SCH ×3 (02:05→17:40)
[2017-01-13] MEDS: Ciprofloxacin 400mg/200ml D5W 200 ML IVPB SCH ×2 (03:32→17:37)
--- NOTE | 2017-01-13 07:45 | CP.PCM.PN ---
<TaiTerra - Last Filed: 01/13/17 07:43> Subjective - Date & Time of Evaluation Date of Evaluation: 01/13/17 Time of Evaluation: 07:43 - Subjective Subjective: General Surgery - Dr. Mclean Pt S&E. PT states she vomited 1x yesterday night after drinking some of her clear liquid diet. She denies any further N/V since that episodes. Pt. states her pain is slightly better this morning. No F/C, SOB/CP. Objective - Vital Signs/Intake and Output Vital Signs (last 24 hours): Temp Pulse Resp BP Pulse Ox 98.5 F 63 18 118/73 99 01/12/17 20:48 01/12/17 20:48 01/12/17 20:48 01/12/17 20:48 01/12/17 20:48 - Medications Medications: Current Medications Acetaminophen (Tylenol 325mg Tab) 650 mg PO Q6 PRN PRN Reason: Headache Acetaminophen (Tylenol 325mg Tab) 650 mg PO Q6 PRN PRN Reason: Pain, Mild (1-3) Last Admin: 01/13/17 02:04 Dose: 650 mg Atorvastatin Calcium (Lipitor) 40 mg PO HS [facility] Last Admin: 01/12/17 21:31 Dose: 40 mg Ciprofloxacin (Cipro 400mg/200ml Dsw) 200 mls @ 200 mls/hr IVPB Q12@0400,1600 [facility] Last Admin: 01/13/17 03:32 Dose: 200 mls/hr Metronidazole (Flagyl 500mg/100ml Ns) 100 mls @ 100 mls/hr IVPB Q8@0200,1000, 1800 [facility] Last Admin: 01/13/17 02:05 Dose: 100 mls/hr Insulin Human Lispro (Humalog) 0 units SC ACCU-CHECK [facility] PRN Reason: Protocol Last Admin: 01/12/17 23:00 Dose: Not Given Levothyroxine Sodium (Synthroid) 125 mcg PO DAILY@0630 [facility] Last Admin: 01/12/17 09:00 Dose: 125 mcg Lisinopril (Zestril) 20 mg PO DAILY [facility] Last Admin: 01/12/17 11:50 Dose: 20 mg Metformin HCl (Glucophage) 500 mg PO BID [facility] Metoprolol Tartrate (Lopressor) 100 mg PO BID [facility] Last Admin: 01/12/17 17:44 Dose: 100 mg Morphine Sulfate (Morphine) 2 mg IVP Q4 PRN PRN Reason: Pain, moderate (4-7) Last Admin: 01/12/17 20:33 Dose: 2 mg Ondansetron HCl (Zofran Inj) 4 mg IVP Q6 PRN PRN Reason: Nausea/Vomiting Last Admin: 01/12/17 20:26 Dose: 4 mg Pantoprazole Sodium (Protonix Ec Tab) 40 mg PO DAILY [facility] - Labs Labs: 01/12/17 05:35 01/12/17 05:35 - Constitutional Appears: No Acute Distress - Head Exam Head Exam: ATRAUMATIC, NORMAL INSPECTION, NORMOCEPHALIC - Eye Exam Eye Exam: Normal appearance - Respiratory Exam Respiratory Exam: NORMAL BREATHING PATTERN. absent: Respiratory Distress - GI/Abdominal Exam GI & Abdominal Exam: Firm, Guarding, Soft, Tenderness (LLQ/Suprapubic), Rebound. absent: Rigid - Neurological Exam Neurological Exam: Alert, Oriented x3 - Psychiatric Exam Psychiatric exam: Normal Affect, Normal Mood - Skin Skin Exam: Dry, Intact Assessment and Plan - Assessment and Plan (Free Text) Assessment: 56F with acute diverticulitis with abscess Plan: - Continue IV Abx - Sips of clear liquids, monitor for N/V - Pain control - Recc. GI consult as pt. will need colonoscopy eventually DW Dr Vinay Lujan PGY2 <Chris Mclean - Last Filed: 01/13/17 12:32> Subjective - Subjective Subjective: Patient was seen and examined at the bedside. Agree with the resident's note above. Objective - Vital Signs/Intake and Output Vital Signs (last 24 hours): Temp Pulse Resp BP Pulse Ox 97.7 F 64 20 126/77 97 01/13/17 07:50 01/13/17 07:50 01/13/17 07:50 01/13/17 07:50 01/13/17 07:50 - Medications Medications: Current Medications Acetaminophen (Tylenol 325mg Tab) 650 mg PO Q6 PRN PRN Reason: Headache Acetaminophen (Tylenol 325mg Tab) 650 mg PO Q6 PRN PRN Reason: Pain, Mild (1-3) Last Admin: 01/13/17 02:04 Dose: 650 mg Atorvastatin Calcium (Lipitor) 40 mg PO HS [facility] Last Admin: 01/12/17 21:31 Dose: 40 mg Ciprofloxacin (Cipro 400mg/200ml Dsw) 200 mls @ 200 mls/hr IVPB Q12@0400,1600 [facility] Last Admin: 01/13/17 03:32 Dose: 200 mls/hr Metronidazole (Flagyl 500mg/100ml Ns) 100 mls @ 100 mls/hr IVPB Q8@0200,1000, 1800 [facility] Last Admin: 01/13/17 02:05 Dose: 100 mls/hr Insulin Human Lispro (Humalog) 0 units SC ACCU-CHECK [facility] PRN Reason: Protocol Last Admin: 01/13/17 08:32 Dose: 2 unit Levothyroxine Sodium (Synthroid) 125 mcg PO DAILY@0630 [facility] Last Admin: 01/13/17 08:30 Dose: 125 mcg Lisinopril (Zestril) 20 mg PO DAILY [facility] Last Admin: 01/13/17 08:30 Dose: 20 mg Metformin HCl (Glucophage) 500 mg PO BID [facility] Metoprolol Tartrate (Lopressor) 100 mg PO BID [facility] Last Admin: 01/13/17 08:30 Dose: 100 mg Morphine Sulfate (Morphine) 2 mg IVP Q4 PRN PRN Reason: Pain, moderate (4-7) Last Admin: 01/12/17 20:33 Dose: 2 mg Ondansetron HCl (Zofran Inj) 4 mg IVP Q6 PRN PRN Reason: Nausea/Vomiting Last Admin: 01/12/17 20:26 Dose: 4 mg Pantoprazole Sodium (Protonix Ec Tab) 40 mg PO DAILY [facility] Last Admin: 01/13/17 08:30 Dose: 40 mg - Labs Labs: 01/13/17 06:00 01/13/17 06:00 Assessment and Plan - Assessment and Plan (Free Text) Plan: - Keep on clear liquid diet - Pain control - IV fluids - Continue antibiotics - Out of bed and ambulate - Repeat labs in am - Will follow
[2017-01-13 07:59] LABS: ALB/GLOB RATIO 0.9 (1.0-2.1); ALKALINE PHOSPHATASE 84 U/L (38-126); ALT/SGPT 28 U/L (9-52); AST/SGOT 30 U/L (14-36); BILIRUBIN,TOTAL 1.3 mg/dl (0.2-1.3); BLOOD UREA NITROGEN 6 mg/dl (7-17); CALCIUM 8.8 mg/dL (8.4-10.2); CARBON DIOXIDE 21 mmol/L (22-30); CHLORIDE 106 mmol/L (98-107); GFR AFRICAN-AMERICAN > 60; GLUCOSE,RANDOM 141 mg/dL (65-105); POTASSIUM 3.9 MMOL/L (3.6-5.0); SODIUM 141 mmol/l (132-148); TOTAL PROTEIN 6.9 G/DL (6.3-8.2)
--- NOTE | 2017-01-13 08:10 | CP.PCM.PN ---
Subjective - Date & Time of Evaluation Date of Evaluation: 01/13/17 Time of Evaluation: 07:00 - Subjective Subjective: The patient is a 56 y/o woman w/ PMH of HTN, DM2, Hyperlipidemia, Hypothyroidism s/p Thyroidectomy (5 years ago as per pt) presented with worsening intermittent lower abdominal pain localizing to the LLQ, dysuria and chills 3 days prior to admission. The patient was seen this morning. There are no acute events overnight. The patient is not in acute distress. The patient reports x2 episodes of NBNB vomit after drinking clear liquids yesterday. The patient also complained of headache that resolved with Tylenol. The patient still complains of abdominal pain in the LLQ, but is better today. The patient also complains of epigastric discomfort which she thinks is due to gas. The patient denies dysuria but has not had a bowel movement since the day before admission. The patient this morning denies headaches, dizziness, chest pain, dyspnea, nausea, vomiting, and fevers. Objective - Vital Signs/Intake and Output Vital Signs (last 24 hours): Temp Pulse Resp BP Pulse Ox 97.7 F 64 20 126/77 97 01/13/17 07:50 01/13/17 07:50 01/13/17 07:50 01/13/17 07:50 01/13/17 07:50 - Medications Medications: Current Medications Acetaminophen (Tylenol 325mg Tab) 650 mg PO Q6 PRN PRN Reason: Headache Acetaminophen (Tylenol 325mg Tab) 650 mg PO Q6 PRN PRN Reason: Pain, Mild (1-3) Last Admin: 01/13/17 02:04 Dose: 650 mg Atorvastatin Calcium (Lipitor) 40 mg PO HS [facility] Last Admin: 01/12/17 21:31 Dose: 40 mg Ciprofloxacin (Cipro 400mg/200ml Dsw) 200 mls @ 200 mls/hr IVPB Q12@0400,1600 [facility] Last Admin: 01/13/17 03:32 Dose: 200 mls/hr Metronidazole (Flagyl 500mg/100ml Ns) 100 mls @ 100 mls/hr IVPB Q8@0200,1000, 1800 [facility] Last Admin: 01/13/17 02:05 Dose: 100 mls/hr Insulin Human Lispro (Humalog) 0 units SC ACCU-CHECK [facility] PRN Reason: Protocol Last Admin: 01/12/17 23:00 Dose: Not Given Levothyroxine Sodium (Synthroid) 125 mcg PO DAILY@0630 [facility] Last Admin: 01/12/17 09:00 Dose: 125 mcg Lisinopril (Zestril) 20 mg PO DAILY [facility] Last Admin: 01/12/17 11:50 Dose: 20 mg Metformin HCl (Glucophage) 500 mg PO BID [facility] Metoprolol Tartrate (Lopressor) 100 mg PO BID [facility] Last Admin: 01/12/17 17:44 Dose: 100 mg Morphine Sulfate (Morphine) 2 mg IVP Q4 PRN PRN Reason: Pain, moderate (4-7) Last Admin: 01/12/17 20:33 Dose: 2 mg Ondansetron HCl (Zofran Inj) 4 mg IVP Q6 PRN PRN Reason: Nausea/Vomiting Last Admin: 01/12/17 20:26 Dose: 4 mg Pantoprazole Sodium (Protonix Ec Tab) 40 mg PO DAILY [facility] - Labs Labs: 01/12/17 05:35 01/12/17 05:35 - Constitutional Appears: No Acute Distress - Head Exam Head Exam: ATRAUMATIC, NORMOCEPHALIC - ENT Exam ENT Exam: Mucous Membranes Moist - Respiratory Exam Respiratory Exam: Clear to Ausculation Bilateral. absent: Accessory Muscle Use , Chest Wall Tenderness, Decreased Breath Sounds, Prolonged Expiratory Phase, Rales, Rhonchi, Wheezes, Respiratory Distress, Stridor - Cardiovascular Exam Cardiovascular Exam: REGULAR RHYTHM. absent: Tachycardia - GI/Abdominal Exam GI & Abdominal Exam: Distended, Guarding, Soft, Tenderness, Normal Bowel Sounds , Rebound Additional comments: distended obese abdomen, LLQ tenderness, rebound, no guarding, not rigid - Extremities Exam Extremities Exam: Normal Inspection. absent: Calf Tenderness, Pedal Edema, Tenderness - Neurological Exam Neurological Exam: Alert, Awake, Oriented x3 - Skin Skin Exam: Dry, Intact, Normal Color, Warm Assessment and Plan - Assessment and Plan (Free Text) Assessment: The patient is a 56 y/o woman w/ PMH of HTN, DM2, Hyperlipidemia, Hypothyroidism s/p Thyroidectomy (5 years ago as per patient) presented with worsening intermittent lower abdominal pain localizing to the LLQ, dysuria and chills 3 days prior to admission. Plan: 1. Acute Sigmoid Diverticulitis - afebrile, no leukocytosis - CBC: 6.8>12.4/37.2<281 - CMP: 141/3.9, 106/21, 6/0.7, glucose 141, Ca2+ 8.8, AST 30, ALT 28 - CT abdo w/contrast: acute sigmoid diverticulitis, suspected reactive inflammation/abscess in left adnexa in left ovary measuring 3.3 x 3.3 x 4.5 cm tracking anteriorly to left abdominal wall. - TVUS: no adenexal abscess, no pelvic/adnexal mass, s/p hysterectomy - IV ciprofloxacin 400 mg Q12h - IV metronidazole 500 mg Q8h - Morphine 2 mg IV Q4h for pain control - Zofran 4 mg IV Q8 PRN - Tylenol 650 mg PO Q6h prn for fever - Surgery consulted; recommendations appreciated - clear liquid diet, small sips - follow up CT Abdomen/Pelvis with PO and IV contrast 2. Dysuria - resolved - UA: negative leukocyte esterase and nitrates - Urine culture: no growth - on IV cipro 400 mg Q12h 3. HTN - controlled - continue with metoprolol 100 mg PO BID and lisinopril 20 mg PO daily 4. DM Type 2 - controlled, non-insulin dependent - metformin 500 mg PO BID held - Medium Dose SS - accuchecks ACHS - hypoglycemia protocol 5. Hypothyroidism - controlled - TSH 12/24/2016: 0.83 - continue with levothyroxine 125 mcg PO daily 6. HLD - controlled - continue with atorvastatin 40 mg PO HS 7. Prophylaxis DVT - SCDs and ambulation for now; low risk GI - Protonix 40 mg IV daily
[2017-01-13 08:11] LABS: HEMATOCRIT 37.2 % (34.0-47.0); MEAN CELL VOLUME 81.9 fl (81.0-99.0); MEAN CORPUSCULAR HEMOGLOBIN 27.3 pg (27.0-31.0); MEAN CORPUSCULAR HGB CONC 33.4 g/dL (33.0-37.0); RED CELL DISTRIBUTION WIDTH 14.7 % (11.5-14.5); WHITE BLOOD COUNT 6.8 K/uL (4.8-10.8)
[2017-01-13] MEDS: Levothyroxine 125 MCG TAB PO SCH (08:30)
[2017-01-13] MEDS: Pantoprazole 40 mg EC Tab PO SCH (08:30)
[2017-01-13] MEDS: Insulin Lispro (humaLOG) 100 Units/ml Inj SC SCH ×4 (08:32→23:00)
[2017-01-13] MEDS ORDERED: Iohexol 240 (50 ml) PO ONE (10:16)
[2017-01-14] MEDS: metroNIDAZOLE 500mg/100ml NS 100 ML IVPB SCH ×3 (02:04→18:04)
[2017-01-14] MEDS: Ciprofloxacin 400mg/200ml D5W 200 ML IVPB SCH ×2 (03:26→16:32)
[2017-01-14] MEDS: Levothyroxine 125 MCG TAB PO SCH (06:11)
[2017-01-14] MEDS: Insulin Lispro (humaLOG) 100 Units/ml Inj SC SCH ×4 (07:13→23:00)
[2017-01-14] MEDS ORDERED: Iohexol 240 (50 ml) PO ONE (07:33)
--- NOTE | 2017-01-14 07:52 | CP.PCM.PN ---
Subjective - Date & Time of Evaluation Date of Evaluation: 01/14/17 Time of Evaluation: 07:00 - Subjective Subjective: The patient is a 56 y/o woman w/ PMH of HTN, DM2, Hyperlipidemia, Hypothyroidism s/p Thyroidectomy (5 years ago as per pt) presented with worsening intermittent lower abdominal pain localizing to the LLQ, dysuria and chills 3 days prior to admission. The patient was seen this morning. There are no acute events overnight. The patient is not in acute distress. The patient tolerated chicken soup last night without any episode of nausea and/or vomiting. The patient continues to complain of abdominal pain in the suprapubic and LLQ, but better today. The patient also complains of mild epigastric discomfort. The patient denies dysuria and still has not had a bowel movement since the day before admission. The patient complains of mild pain in the right gluteal area. The patient this morning denies headaches, dizziness, chest pain, dyspnea, nausea, vomiting, and fevers. The patient has started taking PO contrast for repeat CT scan this morning. Objective - Vital Signs/Intake and Output Vital Signs (last 24 hours): Temp Pulse Resp BP Pulse Ox 98 F 60 20 136/72 99 01/13/17 20:30 01/13/17 20:30 01/13/17 20:30 01/13/17 20:30 01/13/17 20:30 - Medications Medications: Current Medications Acetaminophen (Tylenol 325mg Tab) 650 mg PO Q6 PRN PRN Reason: Headache Acetaminophen (Tylenol 325mg Tab) 650 mg PO Q6 PRN PRN Reason: Pain, Mild (1-3) Last Admin: 01/13/17 02:04 Dose: 650 mg Atorvastatin Calcium (Lipitor) 40 mg PO HS [facility] Last Admin: 01/13/17 21:23 Dose: 40 mg Ciprofloxacin (Cipro 400mg/200ml Dsw) 200 mls @ 200 mls/hr IVPB Q12@0400,1600 [facility] Last Admin: 01/14/17 03:26 Dose: 200 mls/hr Metronidazole (Flagyl 500mg/100ml Ns) 100 mls @ 100 mls/hr IVPB Q8@0200,1000, 1800 [facility] Last Admin: 01/14/17 02:04 Dose: 100 mls/hr Insulin Human Lispro (Humalog) 0 units SC ACCU-CHECK [facility] PRN Reason: Protocol Last Admin: 01/13/17 23:00 Dose: Not Given Levothyroxine Sodium (Synthroid) 125 mcg PO DAILY@0630 [facility] Last Admin: 01/14/17 06:11 Dose: 125 mcg Lisinopril (Zestril) 20 mg PO DAILY [facility] Last Admin: 01/13/17 08:30 Dose: 20 mg Metformin HCl (Glucophage) 500 mg PO BID [facility] Metoprolol Tartrate (Lopressor) 100 mg PO BID [facility] Last Admin: 01/13/17 17:33 Dose: 100 mg Morphine Sulfate (Morphine) 2 mg IVP Q4 PRN PRN Reason: Pain, moderate (4-7) Last Admin: 01/12/17 20:33 Dose: 2 mg Ondansetron HCl (Zofran Inj) 4 mg IVP Q6 PRN PRN Reason: Nausea/Vomiting Last Admin: 01/12/17 20:26 Dose: 4 mg Pantoprazole Sodium (Protonix Ec Tab) 40 mg PO DAILY [facility] Last Admin: 01/13/17 08:30 Dose: 40 mg - Labs Labs: 01/13/17 06:00 01/13/17 06:00 - Constitutional Appears: No Acute Distress - Head Exam Head Exam: ATRAUMATIC, NORMOCEPHALIC - ENT Exam ENT Exam: Mucous Membranes Moist - Respiratory Exam Respiratory Exam: Clear to Ausculation Bilateral. absent: Accessory Muscle Use , Chest Wall Tenderness, Decreased Breath Sounds, Prolonged Expiratory Phase, Rales, Rhonchi, Wheezes, Respiratory Distress, Stridor - Cardiovascular Exam Cardiovascular Exam: REGULAR RHYTHM. absent: Tachycardia - GI/Abdominal Exam GI & Abdominal Exam: Distended, Guarding, Soft, Tenderness, Normal Bowel Sounds , Rebound Additional comments: distended obese abdomen, LLQ tenderness, pain worse with rebound, some guarding , not rigid - Rectal Exam Additional comments: no external hemorrhoids, no anal fissures, no abscess, no cellulitis, and no ulcers - Extremities Exam Extremities Exam: Normal Inspection. absent: Calf Tenderness, Tenderness - Neurological Exam Neurological Exam: Alert, Awake, Normal Gait, Oriented x3 - Skin Skin Exam: Dry, Intact, Normal Color, Warm Assessment and Plan - Assessment and Plan (Free Text) Assessment: The patient is a 56 y/o woman w/ PMH of HTN, DM2, Hyperlipidemia, Hypothyroidism s/p Thyroidectomy (5 years ago as per patient) presented with worsening intermittent lower abdominal pain localizing to the LLQ, dysuria and chills 3 days prior to admission. Plan: 1. Acute Sigmoid Diverticulitis - afebrile, no leukocytosis - CBC: 6.8>12.4/37.2<281 - CMP: 141/3.9, 106/21, 6/0.7, glucose 141, Ca2+ 8.8, AST 30, ALT 28 - CT abdo w/contrast: acute sigmoid diverticulitis, suspected reactive inflammation/abscess in left adnexa in left ovary measuring 3.3 x 3.3 x 4.5 cm tracking anteriorly to left abdominal wall. - TVUS: no adenexal abscess, no pelvic/adnexal mass, s/p hysterectomy - Day 3: IV ciprofloxacin 400 mg Q12h - Day 3: IV metronidazole 500 mg Q8h - Morphine 2 mg IV Q4h for pain control - Zofran 4 mg IV Q8 PRN - Tylenol 650 mg PO Q6h prn for fever - Surgery consulted; recommendations appreciated - tolerated clear liquid diet without issue, advance to regular diet s/p CT abdomen - follow up CT Abdomen/Pelvis with PO and IV contrast - follow up with GI as outpatient for colonoscopy 2. HTN - controlled - continue with metoprolol 100 mg PO BID and lisinopril 20 mg PO daily 3. DM Type 2 - controlled, non-insulin dependent - metformin 500 mg PO BID held - Medium Dose SS - accuchecks ACHS - hypoglycemia protocol 4. Hypothyroidism - controlled - TSH 12/24/2016: 0.83 - continue with levothyroxine 125 mcg PO daily 5. HLD - controlled - continue with atorvastatin 40 mg PO HS 8. Prophylaxis DVT - SCDs and ambulation for now; low risk GI - Protonix 40 mg IV daily
--- NOTE | 2017-01-14 07:55 | CP.PCM.PN ---
<Terra Lujan - Last Filed: 01/14/17 07:50> Subjective - Date & Time of Evaluation Date of Evaluation: 01/14/17 Time of Evaluation: 07:51 - Subjective Subjective: General Surgery - Dr. Mclean Pt S&EBethany GRACE. Pt complains of continued pain in the LLQ/Suprapubic region, unchanged from yesterday. She is tolerating liquid diet and having BMS, normal. No N/V, F/C, SOB/CP. Objective - Vital Signs/Intake and Output Vital Signs (last 24 hours): Temp Pulse Resp BP Pulse Ox 98 F 60 20 136/72 99 01/13/17 20:30 01/13/17 20:30 01/13/17 20:30 01/13/17 20:30 01/13/17 20:30 - Medications Medications: Current Medications Acetaminophen (Tylenol 325mg Tab) 650 mg PO Q6 PRN PRN Reason: Headache Acetaminophen (Tylenol 325mg Tab) 650 mg PO Q6 PRN PRN Reason: Pain, Mild (1-3) Last Admin: 01/13/17 02:04 Dose: 650 mg Atorvastatin Calcium (Lipitor) 40 mg PO HS [facility] Last Admin: 01/13/17 21:23 Dose: 40 mg Ciprofloxacin (Cipro 400mg/200ml Dsw) 200 mls @ 200 mls/hr IVPB Q12@0400,1600 [facility] Last Admin: 01/14/17 03:26 Dose: 200 mls/hr Metronidazole (Flagyl 500mg/100ml Ns) 100 mls @ 100 mls/hr IVPB Q8@0200,1000, 1800 [facility] Last Admin: 01/14/17 02:04 Dose: 100 mls/hr Insulin Human Lispro (Humalog) 0 units SC ACCU-CHECK [facility] PRN Reason: Protocol Last Admin: 01/13/17 23:00 Dose: Not Given Levothyroxine Sodium (Synthroid) 125 mcg PO DAILY@0630 [facility] Last Admin: 01/14/17 06:11 Dose: 125 mcg Lisinopril (Zestril) 20 mg PO DAILY [facility] Last Admin: 01/13/17 08:30 Dose: 20 mg Metformin HCl (Glucophage) 500 mg PO BID [facility] Metoprolol Tartrate (Lopressor) 100 mg PO BID [facility] Last Admin: 01/13/17 17:33 Dose: 100 mg Morphine Sulfate (Morphine) 2 mg IVP Q4 PRN PRN Reason: Pain, moderate (4-7) Last Admin: 01/12/17 20:33 Dose: 2 mg Ondansetron HCl (Zofran Inj) 4 mg IVP Q6 PRN PRN Reason: Nausea/Vomiting Last Admin: 01/12/17 20:26 Dose: 4 mg Pantoprazole Sodium (Protonix Ec Tab) 40 mg PO DAILY [facility] Last Admin: 01/13/17 08:30 Dose: 40 mg - Labs Labs: 01/13/17 06:00 01/13/17 06:00 - Constitutional Appears: No Acute Distress - Head Exam Head Exam: ATRAUMATIC, NORMAL INSPECTION, NORMOCEPHALIC - Respiratory Exam Respiratory Exam: NORMAL BREATHING PATTERN. absent: Respiratory Distress - GI/Abdominal Exam GI & Abdominal Exam: Firm, Guarding, Soft, Tenderness, Rebound. absent: Distended, Rigid - Neurological Exam Neurological Exam: Alert, Oriented x3 - Psychiatric Exam Psychiatric exam: Normal Affect, Normal Mood - Skin Skin Exam: Dry, Intact Assessment and Plan - Assessment and Plan (Free Text) Assessment: 56F with acute diverticulitis with abscess Plan: - Continue IV Abx - Clear liquid diet, may advance later today - Repeat CT being ordered by Medicine team, will F/U results - Recc. GI consult as pt. will need colonoscopy eventually DW Dr Vinay Lujan PGY2 <Chris Mclean - Last Filed: 01/14/17 10:24> Subjective - Date & Time of Evaluation Time of Evaluation: 10:05 - Subjective Subjective: Patient was seen and examined at the bedside. Agree with resident's note above Objective - Vital Signs/Intake and Output Vital Signs (last 24 hours): Temp Pulse Resp BP Pulse Ox 97.9 F 73 20 144/85 98 01/14/17 08:00 01/14/17 08:00 01/14/17 08:00 01/14/17 08:00 01/14/17 08:00 - Medications Medications: Current Medications Acetaminophen (Tylenol 325mg Tab) 650 mg PO Q6 PRN PRN Reason: Headache Acetaminophen (Tylenol 325mg Tab) 650 mg PO Q6 PRN PRN Reason: Pain, Mild (1-3) Last Admin: 01/13/17 02:04 Dose: 650 mg Atorvastatin Calcium (Lipitor) 40 mg PO HS [facility] Last Admin: 01/13/17 21:23 Dose: 40 mg Ciprofloxacin (Cipro 400mg/200ml Dsw) 200 mls @ 200 mls/hr IVPB Q12@0400,1600 [facility] Last Admin: 01/14/17 03:26 Dose: 200 mls/hr Metronidazole (Flagyl 500mg/100ml Ns) 100 mls @ 100 mls/hr IVPB Q8@0200,1000, 1800 [facility] Last Admin: 01/14/17 09:30 Dose: 100 mls/hr Insulin Human Lispro (Humalog) 0 units SC ACCU-CHECK [facility] PRN Reason: Protocol Last Admin: 01/14/17 07:13 Dose: Not Given Levothyroxine Sodium (Synthroid) 125 mcg PO DAILY@0630 [facility] Last Admin: 01/14/17 06:11 Dose: 125 mcg Lisinopril (Zestril) 20 mg PO DAILY [facility] Last Admin: 01/13/17 08:30 Dose: 20 mg Metformin HCl (Glucophage) 500 mg PO BID [facility] Metoprolol Tartrate (Lopressor) 100 mg PO BID [facility] Last Admin: 01/13/17 17:33 Dose: 100 mg Morphine Sulfate (Morphine) 2 mg IVP Q4 PRN PRN Reason: Pain, moderate (4-7) Last Admin: 01/12/17 20:33 Dose: 2 mg Ondansetron HCl (Zofran Inj) 4 mg IVP Q6 PRN PRN Reason: Nausea/Vomiting Last Admin: 01/12/17 20:26 Dose: 4 mg Pantoprazole Sodium (Protonix Ec Tab) 40 mg PO DAILY [facility] Last Admin: 01/13/17 08:30 Dose: 40 mg Senna/Docusate Sodium (Senokot S 50 Mg-8.6 Mg) 2 tab PO [facility] - Labs Labs: 01/13/17 06:00 01/13/17 06:00 Assessment and Plan - Assessment and Plan (Free Text) Plan: - Advance to low residue diet - Pain control - Repeat CT scan today - Will follow
[2017-01-14] MEDS ORDERED: Sodium Chloride 0.9% 50 ML IV ONE (13:05)
[2017-01-14] MEDS ORDERED: Iohexol 300 100 ML IJ ONE (13:05)
[2017-01-14] MEDS: Pantoprazole 40 mg EC Tab PO SCH (13:56)
--- NOTE | 2017-01-14 14:07 | CT ---
PROCEDURE: CT Abdomen and Pelvis with contrast HISTORY: persistent LLQ pain, guarding, rebound COMPARISON: 01/11/2017. TECHNIQUE: Contrast dose: 95 cc Omnipaque 300. Radiation dose: Total exam DLP = 1048.15 mGy-cm. This CT exam was performed using one or more of the following dose reduction techniques: Automated exposure control, adjustment of the mA and/or kV according to patient size, and/or use of iterative reconstruction technique. FINDINGS: LOWER THORAX: Unremarkable. LIVER: Unremarkable. No gross lesion or ductal dilatation. GALLBLADDER AND BILE DUCTS: Unremarkable. PANCREAS: Unremarkable. No gross lesion or ductal dilatation. SPLEEN: Unremarkable. ADRENALS: Unremarkable. No mass. KIDNEYS AND URETERS: Unremarkable. No hydronephrosis. No solid mass. VASCULATURE: Unremarkable. No aortic aneurysm. BOWEL: Persistent inflammatory changes primarily affecting the sigmoid colon. Small phlegmonous process anti mesenteric border again identified measuring 2.8 x 3.5 cm. No associated loculated air or free air. APPENDIX: Normal appendix. PERITONEUM: This LYMPH NODES: Unremarkable. No enlarged lymph nodes. BLADDER: Unremarkable. REPRODUCTIVE: Prior hysterectomy. Inflammatory changes left hemipelvis. BONES: No acute fracture. OTHER FINDINGS: None. IMPRESSION: Inflammatory changes primarily affecting the sigmoid colon. Adjacent small fluid collection/phlegmonous process anti mesenteric border unchanged.
[2017-01-14] MEDS ORDERED: Docusate-Senna 50 mg-8.6 mg Tab PO SCH ×2 (22:00)
[2017-01-15] MEDS: metroNIDAZOLE 500mg/100ml NS 100 ML IVPB SCH ×2 (02:50→08:59)
[2017-01-15] MEDS: Ciprofloxacin 400mg/200ml D5W 200 ML IVPB SCH ×2 (03:52→16:00)
[2017-01-15] MEDS: Levothyroxine 125 MCG TAB PO SCH (05:49)
[2017-01-15] MEDS: Insulin Lispro (humaLOG) 100 Units/ml Inj SC SCH ×3 (07:00→16:04)
[2017-01-15] MEDS: Pantoprazole 40 mg EC Tab PO SCH (08:51)
--- NOTE | 2017-01-15 09:29 | CP.PCM.PN ---
<Mario Weir - Last Filed: 01/15/17 14:20> Subjective - Date & Time of Evaluation Date of Evaluation: 01/15/17 Time of Evaluation: 07:25 - Subjective Subjective: General Surgery - Dr. Mclean Pt S&EBethany GRACE. Pt complains of continued pain in the LLQ/Suprapubic region, unchanged from yesterday. She is tolerating hepatic diet and having BMS, normal. No N/V, F/C, SOB/CP. Objective - Vital Signs/Intake and Output Vital Signs (last 24 hours): Temp Pulse Resp BP Pulse Ox 98.2 F 62 18 131/77 95 01/15/17 07:59 01/15/17 08:51 01/15/17 07:59 01/15/17 08:51 01/15/17 07:59 - Medications Medications: Current Medications Acetaminophen (Tylenol 325mg Tab) 650 mg PO Q6 PRN PRN Reason: Headache Acetaminophen (Tylenol 325mg Tab) 650 mg PO Q6 PRN PRN Reason: Pain, Mild (1-3) Last Admin: 01/13/17 02:04 Dose: 650 mg Atorvastatin Calcium (Lipitor) 40 mg PO HS [facility] Last Admin: 01/14/17 21:29 Dose: 40 mg Ciprofloxacin (Cipro 400mg/200ml Dsw) 200 mls @ 200 mls/hr IVPB Q12@0400,1600 [facility] Last Admin: 01/15/17 03:52 Dose: 200 mls/hr Metronidazole (Flagyl 500mg/100ml Ns) 100 mls @ 100 mls/hr IVPB Q8@0200,1000, 1800 [facility] Last Admin: 01/15/17 08:59 Dose: 100 mls/hr Insulin Human Lispro (Humalog) 0 units SC ACCU-CHECK [facility] PRN Reason: Protocol Last Admin: 01/14/17 23:00 Dose: Not Given Levothyroxine Sodium (Synthroid) 125 mcg PO DAILY@0630 [facility] Last Admin: 01/15/17 05:49 Dose: 125 mcg Lisinopril (Zestril) 20 mg PO DAILY [facility] Last Admin: 01/15/17 08:51 Dose: 20 mg Metformin HCl (Glucophage) 500 mg PO BID [facility] Metoprolol Tartrate (Lopressor) 100 mg PO BID@1300,2100 [facility] Last Admin: 01/14/17 21:29 Dose: 100 mg Morphine Sulfate (Morphine) 2 mg IVP Q4 PRN PRN Reason: Pain, moderate (4-7) Last Admin: 01/12/17 20:33 Dose: 2 mg Ondansetron HCl (Zofran Inj) 4 mg IVP Q6 PRN PRN Reason: Nausea/Vomiting Last Admin: 01/12/17 20:26 Dose: 4 mg Pantoprazole Sodium (Protonix Ec Tab) 40 mg PO DAILY [facility] Last Admin: 01/15/17 08:51 Dose: 40 mg Senna/Docusate Sodium (Senokot S 50 Mg-8.6 Mg) 2 tab PO HS [facility] Last Admin: 01/14/17 21:31 Dose: 2 tab - Labs Labs: 01/13/17 06:00 01/13/17 06:00 - Constitutional Appears: Well, Non-toxic, No Acute Distress - Eye Exam Eye Exam: EOMI, Normal appearance - ENT Exam ENT Exam: Mucous Membranes Moist, Normal Exam - Respiratory Exam Respiratory Exam: NORMAL BREATHING PATTERN. absent: Chest Wall Tenderness, Decreased Breath Sounds - GI/Abdominal Exam GI & Abdominal Exam: Firm, Soft, Tenderness, Normal Bowel Sounds. absent: Guarding - Neurological Exam Neurological Exam: Alert, Awake, Oriented x3 - Psychiatric Exam Psychiatric exam: Normal Affect, Normal Mood - Skin Skin Exam: Intact, Normal Color, Warm Assessment and Plan - Assessment and Plan (Free Text) Assessment: 56F with acute diverticulitis with abscess Plan: Pt seen and evaluated. - Continue IV Abx - Continue hepatic diet - Repeat CT- shows no change with persistent fluid collection adjacent to sigmoid colon - Recc. GI consult as pt. will need colonoscopy eventually <Chris Mclean - Last Filed: 01/15/17 14:23> Subjective - Subjective Subjective: Patient was seen and examined at the bedside. Agree with resident's note above. Repeat CT scan results noted. Tolerating low residue diet. Objective - Vital Signs/Intake and Output Vital Signs (last 24 hours): Temp Pulse Resp BP Pulse Ox 98.2 F 62 18 131/77 95 01/15/17 07:59 01/15/17 08:51 01/15/17 07:59 01/15/17 08:51 01/15/17 07:59 - Medications Medications: Current Medications Acetaminophen (Tylenol 325mg Tab) 650 mg PO Q6 PRN PRN Reason: Headache Acetaminophen (Tylenol 325mg Tab) 650 mg PO Q6 PRN PRN Reason: Pain, Mild (1-3) Last Admin: 01/13/17 02:04 Dose: 650 mg Atorvastatin Calcium (Lipitor) 40 mg PO HS [facility] Last Admin: 01/14/17 21:29 Dose: 40 mg Ciprofloxacin (Cipro 400mg/200ml Dsw) 200 mls @ 200 mls/hr IVPB Q12@0400,1600 [facility] Last Admin: 01/15/17 03:52 Dose: 200 mls/hr Metronidazole (Flagyl 500mg/100ml Ns) 100 mls @ 100 mls/hr IVPB Q8@0200,1000, 1800 [facility] Last Admin: 01/15/17 08:59 Dose: 100 mls/hr Insulin Human Lispro (Humalog) 0 units SC ACCU-CHECK [facility] PRN Reason: Protocol Last Admin: 01/15/17 12:10 Dose: 2 unit Levothyroxine Sodium (Synthroid) 125 mcg PO DAILY@0630 [facility] Last Admin: 01/15/17 05:49 Dose: 125 mcg Lisinopril (Zestril) 20 mg PO DAILY [facility] Last Admin: 01/15/17 08:51 Dose: 20 mg Metformin HCl (Glucophage) 500 mg PO BID [facility] Metoprolol Tartrate (Lopressor) 100 mg PO BID@1300,2100 [facility] Last Admin: 01/14/17 21:29 Dose: 100 mg Morphine Sulfate (Morphine) 2 mg IVP Q4 PRN PRN Reason: Pain, moderate (4-7) Last Admin: 01/12/17 20:33 Dose: 2 mg Ondansetron HCl (Zofran Inj) 4 mg IVP Q6 PRN PRN Reason: Nausea/Vomiting Last Admin: 01/12/17 20:26 Dose: 4 mg Pantoprazole Sodium (Protonix Ec Tab) 40 mg PO DAILY [facility] Last Admin: 01/15/17 08:51 Dose: 40 mg Senna/Docusate Sodium (Senokot S 50 Mg-8.6 Mg) 2 tab PO HS PRN PRN Reason: Constipation - Labs Labs: 01/13/17 06:00 01/13/17 06:00 Assessment and Plan - Assessment and Plan (Free Text) Plan: - Clear for discharge home from the surgical stand point - Patient will need colonoscopy in 6 to 8 weeks
[2017-01-15] MEDS ORDERED: Docusate-Senna 50 mg-8.6 mg Tab PO PRN (09:41)
--- NOTE | 2017-01-15 10:22 | CP.PCM.PN ---
Subjective - Date & Time of Evaluation Date of Evaluation: 01/15/17 Time of Evaluation: 07:15 - Subjective Subjective: The patient is a 56 y/o woman w/ PMH of HTN, DM2, Hyperlipidemia, Hypothyroidism s/p Thyroidectomy (5 years ago as per pt) presented with worsening intermittent lower abdominal pain localizing to the LLQ, dysuria and chills 3 days prior to admission. The patient was seen this morning. There are no acute events overnight. The patient is not in acute distress. The patient tolerated regular food yesterday without any episode of nausea and/or vomiting. The patient still has some abdominal pain in the suprapubic and LLQ but continues to improve daily. The patient denies dysuria; however, now reports 3 loose bowel movements s/p senokot. The patient also complains of left leg pain. The patient this morning denies headaches, dizziness, chest pain, dyspnea, nausea, vomiting, and fevers. Objective - Vital Signs/Intake and Output Vital Signs (last 24 hours): Temp Pulse Resp BP Pulse Ox 98.2 F 62 18 131/77 95 01/15/17 07:59 01/15/17 08:51 01/15/17 07:59 01/15/17 08:51 01/15/17 07:59 - Medications Medications: Current Medications Acetaminophen (Tylenol 325mg Tab) 650 mg PO Q6 PRN PRN Reason: Headache Acetaminophen (Tylenol 325mg Tab) 650 mg PO Q6 PRN PRN Reason: Pain, Mild (1-3) Last Admin: 01/13/17 02:04 Dose: 650 mg Atorvastatin Calcium (Lipitor) 40 mg PO HS [facility] Last Admin: 01/14/17 21:29 Dose: 40 mg Ciprofloxacin (Cipro 400mg/200ml Dsw) 200 mls @ 200 mls/hr IVPB Q12@0400,1600 [facility] Last Admin: 01/15/17 03:52 Dose: 200 mls/hr Metronidazole (Flagyl 500mg/100ml Ns) 100 mls @ 100 mls/hr IVPB Q8@0200,1000, 1800 [facility] Last Admin: 01/15/17 08:59 Dose: 100 mls/hr Insulin Human Lispro (Humalog) 0 units SC ACCU-CHECK [facility] PRN Reason: Protocol Last Admin: 01/14/17 23:00 Dose: Not Given Levothyroxine Sodium (Synthroid) 125 mcg PO DAILY@0630 [facility] Last Admin: 01/15/17 05:49 Dose: 125 mcg Lisinopril (Zestril) 20 mg PO DAILY [facility] Last Admin: 01/15/17 08:51 Dose: 20 mg Metformin HCl (Glucophage) 500 mg PO BID [facility] Metoprolol Tartrate (Lopressor) 100 mg PO BID@1300,2100 [facility] Last Admin: 01/14/17 21:29 Dose: 100 mg Morphine Sulfate (Morphine) 2 mg IVP Q4 PRN PRN Reason: Pain, moderate (4-7) Last Admin: 01/12/17 20:33 Dose: 2 mg Ondansetron HCl (Zofran Inj) 4 mg IVP Q6 PRN PRN Reason: Nausea/Vomiting Last Admin: 01/12/17 20:26 Dose: 4 mg Pantoprazole Sodium (Protonix Ec Tab) 40 mg PO DAILY [facility] Last Admin: 01/15/17 08:51 Dose: 40 mg Senna/Docusate Sodium (Senokot S 50 Mg-8.6 Mg) 2 tab PO HS PRN PRN Reason: Constipation - Labs Labs: 01/13/17 06:00 01/13/17 06:00 - Constitutional Appears: No Acute Distress - Head Exam Head Exam: ATRAUMATIC, NORMOCEPHALIC - ENT Exam ENT Exam: Mucous Membranes Moist - Respiratory Exam Respiratory Exam: Clear to Ausculation Bilateral. absent: Accessory Muscle Use , Chest Wall Tenderness, Decreased Breath Sounds, Prolonged Expiratory Phase, Rales, Rhonchi, Wheezes, Respiratory Distress, Stridor - Cardiovascular Exam Cardiovascular Exam: REGULAR RHYTHM. absent: Tachycardia - GI/Abdominal Exam GI & Abdominal Exam: Distended, Soft, Tenderness, Normal Bowel Sounds, Rebound. absent: Rigid Additional comments: obese abdomen, patient continues to have rebound tenderness, LLQ and suprapubic tenderness less than yesterday - Extremities Exam Extremities Exam: Calf Tenderness, Tenderness. absent: Pedal Edema Additional comments: palpable +2 DP and PT pulses bilaterally left calf tenderness, + dora's sign of left leg, no erythema, no edema - Neurological Exam Neurological Exam: Alert, Awake, Normal Gait, Oriented x3 - Skin Skin Exam: Dry, Intact, Normal Color, Warm Assessment and Plan - Assessment and Plan (Free Text) Assessment: The patient is a 56 y/o woman w/ PMH of HTN, DM2, Hyperlipidemia, Hypothyroidism s/p Thyroidectomy (5 years ago as per patient) presented with worsening intermittent lower abdominal pain localizing to the LLQ, dysuria and chills 3 days prior to admission. Plan: 1. Acute Sigmoid Diverticulitis - afebrile, no leukocytosis - repeat CT abdo w/contrast 01/14/2017: inflammatory changes primarily affecting the sigmoid colon. Adjacent small fluid collection/phlegmonous process anit-mesenteric border unchanged - Day 4: IV ciprofloxacin 400 mg Q12h - Day 4: IV metronidazole 500 mg Q8h - Morphine 2 mg IV Q4h for pain control - Zofran 4 mg IV Q8 PRN - Tylenol 650 mg PO Q6h prn for fever - Surgery consulted; recommendations appreciated - advanced to low fiber, heart healthy, moderate consistent carbohydrate hepatic diet - follow up with GI as outpatient for colonoscopy 2. Left calf pain - + dora's sign of left leg - follow up duplex venous U/S left lower extremity 3. HTN - controlled - continue with metoprolol 100 mg PO BID and lisinopril 20 mg PO daily 4. DM Type 2 - controlled, non-insulin dependent - metformin 500 mg PO BID held - Medium Dose SS - accuchecks ACHS - hypoglycemia protocol 5. Hypothyroidism - controlled - TSH 12/24/2016: 0.83 - continue with levothyroxine 125 mcg PO daily 6. HLD - controlled - continue with atorvastatin 40 mg PO HS 7. Prophylaxis DVT - SCDs and ambulation for now; low risk GI - Protonix 40 mg IV daily
--- NOTE | 2017-01-15 11:34 | US ---
HISTORY: Left calf pain and tenderness . PRIORS: None. FINDINGS: 2-D, color and duplex Doppler analysis of the bilateral lower extremity venous circulation using routine protocol from the femoral veins through the popliteal veins. Venous compressibility: Normal. Flow and augmentation patterns: Normal. Visualized veins upper third of calf: Normal. Carmen cyst: None. There are morphologically normal inguinal lymph nodes. IMPRESSION: No sonographic or Doppler evidence for DVT in lower extremities.
[2017-01-15 14:57] VITALS: BP 127/80; PULSE 69
--- NOTE | 2017-01-15 15:10 | CP.PCM.DIS ---
Provider - Provider Date of Admission: 01/11/17 18:43 Attending physician: Donna Morejon MD Time Spent in preparation of Discharge (in minutes): 30 Diagnosis - Discharge Diagnosis (1) Diverticulitis large intestine w/o perforation or abscess w/o bleeding Status: Acute Hospital Course - Lab Results Lab Results: Micro Results 01/11/17 19:30 Blood-Venous Blood Culture - Preliminary NO GROWTH AFTER 3 DAYS Most Recent Lab Values WBC 6.8 K/uL (4.8-10.8) 01/13/17 06:00 RBC 4.54 Mil/uL (3.80-5.20) 01/13/17 06:00 Hgb 12.4 g/dL (12.0-16.0) 01/13/17 06:00 Hct 37.2 % (34.0-47.0) 01/13/17 06:00 MCV 81.9 fl (81.0-99.0) 01/13/17 06:00 MCH 27.3 pg (27.0-31.0) 01/13/17 06:00 MCHC 33.4 g/dL (33.0-37.0) 01/13/17 06:00 RDW 14.7 % (11.5-14.5) H 01/13/17 06:00 Plt Count 281 K/uL (130-400) 01/13/17 06:00 MPV 9.2 fl (7.2-11.7) 01/12/17 05:35 Neut % (Auto) 62.1 % (50.0-75.0) 01/12/17 05:35 Lymph % (Auto) 26.1 % (20.0-40.0) 01/12/17 05:35 [place] % (Auto) 9.0 % (0.0-10.0) 01/12/17 05:35 Eos % (Auto) 2.5 % (0.0-4.0) 01/12/17 05:35 Baso % (Auto) 0.3 % (0.0-2.0) 01/12/17 05:35 Neut # 5.0 K/uL (1.8-7.0) 01/12/17 05:35 Lymph # 2.1 K/uL (1.0-4.3) 01/12/17 05:35 [place] # 0.7 K/uL (0.0-0.8) 01/12/17 05:35 Eos # 0.2 K/uL (0.0-0.7) 01/12/17 05:35 Baso # 0.0 K/uL (0.0-0.2) 01/12/17 05:35 Sodium 141 mmol/l (132-148) 01/13/17 06:00 Potassium 3.9 MMOL/L (3.6-5.0) 01/13/17 06:00 Chloride 106 mmol/L (98-107) 01/13/17 06:00 Carbon Dioxide 21 mmol/L (22-30) L 01/13/17 06:00 Anion Gap 18 (10-20) 01/13/17 06:00 BUN 6 mg/dl (7-17) L 01/13/17 06:00 Creatinine 0.7 mg/dL (0.7-1.2) 01/13/17 06:00 Est GFR ( Amer) > 60 01/13/17 06:00 Est GFR (Non-Af Amer) > 60 01/13/17 06:00 POC Glucose (mg/dL) 160 mg/dL (65-110) H 01/15/17 05:49 Random Glucose 141 mg/dL (65-105) H 01/13/17 06:00 Lactic Acid 1.5 MMOL/L (0.7-2.1) 01/11/17 19:28 Calcium 8.8 mg/dL (8.4-10.2) 01/13/17 06:00 Total Bilirubin 1.3 mg/dl (0.2-1.3) 01/13/17 06:00 AST 30 U/L (14-36) 01/13/17 06:00 ALT 28 U/L (9-52) 01/13/17 06:00 Alkaline Phosphatase 84 U/L (38-126) 01/13/17 06:00 Total Protein 6.9 G/DL (6.3-8.2) 01/13/17 06:00 Albumin 3.3 g/dL (3.5-5.0) L 01/13/17 06:00 Globulin 3.5 gm/dL (2.2-3.9) 01/13/17 06:00 Albumin/Globulin Ratio 0.9 (1.0-2.1) L 01/13/17 06:00 Urine Color Straw (YELLOW) 01/11/17 11:40 Urine Clarity Clear (Clear) 01/11/17 11:40 Urine pH 7.0 (5.0-8.0) 01/11/17 11:40 Ur Specific [place] < 1.005 (1.003-1.030) 01/11/17 11:40 Urine Protein Negative mg/dL (NEGATIVE) 01/11/17 11:40 Urine Glucose (UA) Neg mg/dL (Normal) 01/11/17 11:40 Urine Ketones Negative mg/dL (NEGATIVE) 01/11/17 11:40 Urine Blood Small (NEGATIVE) 01/11/17 11:40 Urine Nitrate Negative (NEGATIVE) 01/11/17 11:40 Urine Bilirubin Negative (NEGATIVE) 01/11/17 11:40 Urine Urobilinogen 0.2-1.0 mg/dL (0.2-1.0) 01/11/17 11:40 Ur Leukocyte Esterase Neg Karthik/uL (Negative) 01/11/17 11:40 Urine Microscopic WBC < 1 /hpf (0-5) 01/11/17 11:40 Hepatitis A IgM Ab Negative (NEGATIVE) 01/15/17 05:50 Hep Bs Antigen Negative (NEGATIVE) 01/15/17 05:50 Hep B Core IgM Ab Negative (NEGATIVE) 01/15/17 05:50 Hepatitis C Antibody Negative (NEGATIVE) 01/15/17 05:50 HIV-1 Ab Rapid Screen Non reactive (NON REAC) 01/15/17 05:50 - Hospital Course Hospital Course: The patient is a 56 y/o woman w/ PMH of HTN, DM2, Hyperlipidemia, Hypothyroidism s/p Thyroidectomy (5 years ago as per pt) presented with worsening intermittent lower abdominal pain localizing to the LLQ, dysuria and chills 3 days prior to admission. The patient went to ED and was started on IV antibiotics (IV cipro and flagyll). The patient had a CT abdomen that showed acute sigmoid diverticulitis and a transvaginal ultrasound that showed no adnexal abscess. The patient was given morphine for pain relief. CBC, CMP, and UA were WNL. The patient has been afebrile. The patient had repeat CT abdomen that showed the same inflammatory changes affecting the sigmoid colon. The patient was seen by surgery and no surgical intervention was recommended. The patient complained of left leg pain for which the patient had a duplex ultrasound that showed no DVT. The patient has imrpoved clinically and is tolerating regular food. The patient has been seen, examined, and deemed medically fit with no contraindication for discharge home. The patient is to follow up with GI in specialty clinic in [facility] on 01/26/2017 at 13:[address] Cowan in the [facility] on 01/27/2017 at 15:00. The patient has home medications refilled and called into pharmacy in [facility]. The patient also has PO ciprofloxacin 500 mg tab Q12 for 10 days and flagyll 500 mg Q8 for 10 days. Discharge Exam - Head Exam Head Exam: ATRAUMATIC, NORMOCEPHALIC - Eye Exam Eye Exam: EOMI Pupil Exam: PERRL - ENT Exam ENT Exam: Mucous Membranes Moist - Respiratory Exam Respiratory Exam: Clear to PA & Lateral. absent: Accessory Muscle Use, Chest Wall Tenderness, Decreased Breath Sounds, Prolonged Expiratory Phase, Rales, Rhonchi, Wheezes, Respiratory Distress, Stridor - Cardiovascular Exam Cardiovascular Exam: REGULAR RHYTHM. absent: Tachycardia - GI/Abdominal Exam GI & Abdominal Exam: Normal Bowel Sounds, Rebound, Soft, Tenderness. absent: Distended, Firm, Guarding Additional comments: obese abdomen, less tender, less rebound - Extremities Exam Extremities exam: normal inspection, pedal pulses present - Neurological Exam Neurological exam: Alert, Normal Gait, Oriented x3 - Skin Skin Exam: Dry, Intact, Normal Color, Warm Discharge Plan - Discharge Medications Prescriptions: Atorvastatin [Lipitor] 40 mg PO HS #30 Ciprofloxacin [Cipro] 500 mg PO Q12 #20 tab Levothyroxine [Synthroid] 1 tab PO DAILY #30 Lisinopril [Zestril] 20 mg PO DAILY #30 metFORMIN [glucOPHAGE] 500 mg PO BID #60 Metoprolol Tartrate [Lopressor] 100 mg PO BID #60 metroNIDAZOLE [Flagyl] 500 mg PO Q8 #30 tab - Follow Up Plan Condition: IMPROVED Disposition: HOME/ ROUTINE Additional Instructions: Please follow up with GI in specialty clinic in [facility] on 01/26/2017 at 13:30 Please follow up [address] Cowan at [facility] on 01/27/2017 at 15:00 please take cipro 500 mg PO Q12 for 10 days and flagyll 500 mg PO Q8 for 10 days
[2017-01-15 15:40] VITALS: RESP 20; TEMP 97.9; O2SAT 98
== END 2017-01-15 18:19 | disposition home or self-care (01) | DRG 392 ==
LOC: H.ER 10:38 → H.ERHOLD 18:43 → H.MEDSURG1 20:21
PROVIDERS: ADMIT Family Medicine Geriatric Medicine; ATTEND Family Medicine Geriatric Medicine
DX: K57.32 Diverticulitis of large intestine without perforation or abscess without bleeding (principal); I10 Essential (primary) hypertension; E11.9 Type 2 diabetes mellitus without complications; E78.5 Hyperlipidemia, unspecified; E66.9 Obesity, unspecified; Z68.37 Body mass index [BMI] 37.0-37.9, adult; Z88.6 Allergy status to analgesic agent; R30.0 Dysuria; E89.0 Postprocedural hypothyroidism

== ENCOUNTER 2017-02-10 07:49 | Day surgery (SDC) | payer SELFPAY ==
[2017-02-10] MEDS ORDERED: Lactated Ringer's 500 ML IV ONE (08:52)
[2017-02-10 09:20] VITALS: TEMP 97
[2017-02-10] MEDS ORDERED: Propofol 10 mg/ml Inj (20 ML) ONE (10:33)
[2017-02-10 11:24] VITALS: O2SAT 99
[2017-02-10 11:25] VITALS: BP 142/76; PULSE 70; RESP 20
== END 2017-02-10 11:26 | disposition home or self-care (01) ==
LOC: H.ENDO 07:49
PROVIDERS: ATTEND Internal Medicine Gastroenterology
DX: Z12.11 Encounter for screening for malignant neoplasm of colon (principal); K57.32 Diverticulitis of large intestine without perforation or abscess without bleeding; E11.9 Type 2 diabetes mellitus without complications; E78.5 Hyperlipidemia, unspecified; E03.9 Hypothyroidism, unspecified; I10 Essential (primary) hypertension; G47.30 Sleep apnea, unspecified; K64.8 Other hemorrhoids